=== PATIENT | female | born 1990 | race Caucasian/White ===

== ENCOUNTER → 2017-07-23 | Outpatient (CLI) | payer OTHER ==
[~2017-07-23] MED LIST: ALBU90OI INH; CEPH500 PO; CIPR500 PO; CODACE30 PO; CRUTCH4 USE; CYCL10 PO; DOXY100 PO; EPIN.3I IM; HYDACE5 PO; HYDHCL25 PO; HYDPAM50 PO; IBUP600 PO; IBUP800 PO; METR500 PO; MULVITMINE; NAPR500 PO; NITR100CA PO; PROC10 PO; PROM25 PO; Percocet 5-3251 EACH PO; Prednisone20 MG PO; Prilosec20 MG PO; RXCYCL10 PO; RXHYDACE PO; RXHYDMOR2 PO; SUCR1 PO; SULTRIDS PO; TRAM50 PO; Verotin-Gr Cap1 EACH; Verotin-Gr Cap1 EACH PO; Zofran8 MG PO
[2017-07-23 10:59] LABS: Specimen Source CERVIX
[2017-07-24 03:10] LABS: Source Cervix
[2017-07-24 10:47] LABS: Candida species (DNA Probe) Negative (NEGATIVE); G. vaginalis (DNA Probe) Negative (NEGATIVE); T. vaginalis (DNA Probe) Negative (NEGATIVE)
== END ==
LOC: LAB SHORT 10:46 → LAB 10:46
PROVIDERS: Obstetrics & Gynecology
DX: Z11.3 Encounter for screening for infections with a predominantly sexual mode of transmission (principal); N76.0 Acute vaginitis
CPT/HCPCS: 87480; 87491; 87510; 87591; 87660

== ENCOUNTER → 2017-09-08 | Outpatient (CLI) | payer OTHER ==
[~2017-09-08] MED LIST changes: -IBUP800 PO
[2017-09-08 12:14] LABS: Specimen Source URINE
[2017-09-09 09:39] LABS: Source Urine
== END | disposition home or self-care (01) ==
LOC: LAB 12:07 → LAB SHORT 12:07
PROVIDERS: Obstetrics & Gynecology
DX: Z11.3 Encounter for screening for infections with a predominantly sexual mode of transmission (principal)
CPT/HCPCS: 87491; 87591

== ENCOUNTER 2017-09-14 14:21 | Emergency (ER) | payer OTHER ==
[~2017-09-14] VITALS: Ht 177.8 cm; Wt 139.2 kg
[~2017-09-14 14:21] MED LIST changes: -PROM25 PO; -Verotin-Gr Cap1 EACH
[2017-09-14 15:17] LABS: BASOPHILS ABSOLUTE AUTO 0.06 K/mm3 (0.00-0.23); BASOPHILS PERCENT AUTO 0 % (0-2); EOSINOPHILS ABSOLUTE AUTO 0.13 K/mm3 (0.00-0.68); EOSINOPHILS PERCENT AUTO 1 % (0-6); Hematocrit 40.1 % (33.0-51.0); Hemoglobin 12.8 g/dL (11.5-16.0); IMMATURE GRAN ABSOLUTE AUTO 0.11 K/mm3 (0.00-0.10); IMMATURE GRAN PERCENT AUTO 1 % (0-1); LYMPHOCYTES ABSOLUTE AUTO 3.73 K/mm3 (0.84-5.20); LYMPHOCYTES PERCENT AUTO 24 % (21-46); MONOCYTES ABSOLUTE AUTO 1.04 K/mm3 (0.16-1.47); MONOCYTES PERCENT AUTO 7 % (4-13); Mean Corpuscular HGB 30.8 pg (26.0-34.0); Mean Corpuscular HGB Conc 31.9 g/dL (31.5-36.5); Mean Corpuscular Volume 96 fL (80-100); Mean Platelet Volume 10.1 fL (9.1-12.4); NEUTROPHILS ABSOLUTE AUTO 10.48 K/mm3 (1.96-9.15); NEUTROPHILS PERCENT AUTO 67 % (41-73); Platelet Count 430 K/mm3 (150-400); RDW Coefficient Variation 12.6 % (11.7-14.2); Red Blood Cell Count 4.16 M/mm3 (3.80-5.20); White Blood Cell Count 15.55 K/mm3 (4.00-11.30)
[2017-09-14 15:39] LABS: Alanine Aminotransfer (ALT/SGP 16 U/L (12-78); Albumin, Blood 2.7 g/dL (3.4-5.0); Albumin/Globulin Ratio 0.6 (0.8-1.8); Alk Phos 82 U/L (50-136); Anion Gap 9 mmol/L (6-16); Bilirubin, Total 0.2 mg/dL (0.1-1.0); Blood Urea Nitrogen 3 mg/dL (8-24); Bun/Creatinine Ratio 6.5 (12.0-20.0); CO2, Blood 20 mmol/L (21-32); Calcium, Blood 8.5 mg/dL (8.5-10.1); Chloride, Blood 109 mmol/L (98-108); Creatinine, Blood 0.46 mg/dL (0.40-1.00); Globulin, Blood 4.2 g/dL (2.2-4.0); Glomerular Filtration Rate >60 (60-); Glucose, Blood 82 mg/dL (70-99); Potassium, Blood 3.6 mmol/L (3.5-5.5); Sodium, Blood 138 mmol/L (136-145); Total Protein, Blood 6.9 g/dL (6.4-8.2)
[2017-09-14] MEDS ORDERED: Verotin-Gr Cap1 EACH (16:42)
[2017-09-14 16:58] LABS: Source, Urine Clean Catch
[2017-09-14 17:00] LABS: Bilirubin, Urine Neg (Neg); Blood, Urine Neg (Neg); Glucose Qualitative, Urine Neg (Neg); Ketones, Urine 2+ (Neg); Leukocyte Esterase, Urine 1+ (Neg); Nitrite, Urine Neg (Neg); Protein, Urine Neg (Neg); Urobilinogen, Urine NORM (Normal)
[2017-09-14 17:39] LABS: Appearance, Urine Clear (Clear); Color, Urine Yellow (P-Yellow)
[2017-09-14 17:43] LABS: Bacteria Mod /hpf; Mucus Light (0-Heavy); Red Blood Cells, Urine 0-2 /hpf (0-2); Squamous Epithelial Cells Few /hpf (Few)
[2017-09-14] MEDS ORDERED: PROM25 PO (18:27)
[2017-09-14] MEDS ORDERED: CEPH500 PO (18:27)
[2017-09-14 22:28] LABS: Aspartate Aminotrans (AST/SGOT 16 U/L (12-37)
== END 2017-09-14 18:59 | disposition home or self-care (01) ==
LOC: ER 14:21
PROVIDERS: Emergency Medicine
DX: O23.42 Unspecified infection of urinary tract in pregnancy, second trimester (principal); Z79.899 Other long term (current) drug therapy; Z3A.14 14 weeks gestation of pregnancy
CPT/HCPCS: 36415; 80053; 81001; 81025; 83690; 85025; 87086; 96360; 99283; J7030

== ENCOUNTER → 2017-11-16 | Outpatient (CLI) | payer OTHER ==
[~2017-11-16] MED LIST changes: +PROM25 PO; +Verotin-Gr Cap1 EACH
[2017-11-16 17:54] LABS: Hematocrit 36.5 % (33.0-51.0); Hemoglobin 11.8 g/dL (11.5-16.0)
== END | disposition home or self-care (01) ==
LOC: LAB SHORT 05:10 → LAB 15:10
PROVIDERS: Obstetrics & Gynecology
DX: Z33.1 Pregnant state, incidental (principal)
CPT/HCPCS: 82950; 85014; 85018

== ENCOUNTER → 2018-02-15 | Outpatient (CLI) | payer OTHER | END | disposition home or self-care (01) | LOC: LAB SHORT 17:34 → LAB 17:34 | DX: Z34.83 Encounter for supervision of other normal pregnancy, third trimester (principal) | CPT/HCPCS: 87081; 87653 ==

== ENCOUNTER 2018-06-01 13:56 | Emergency (ER) | payer OTHER ==
[~2018-06-01] VITALS: Ht 180.3 cm; Wt 136.1 kg
[~2018-06-01 13:56] MED LIST changes: +IBUP800 PO
[2018-06-01] MEDS ORDERED: Norco 5-325 Ta1 EACH PO (16:50)
[2018-06-01] MEDS ORDERED: LIDO700A20 TOP (16:50)
== END 2018-06-01 17:06 | disposition home or self-care (01) ==
LOC: ER 13:56
DX: M25.551 Pain in right hip (principal); M54.5 Low back pain; W18.30XA Fall on same level, unspecified, initial encounter; G43.909 Migraine, unspecified, not intractable, without status migrainosus
CPT/HCPCS: 72100; 73502; 96372; 99283-25; J1885

== ENCOUNTER 2018-08-17 21:46 | Emergency (ER) | payer OTHER ==
[~2018-08-17] VITALS: Ht 177.8 cm; Wt 136.1 kg
[~2018-08-17 21:46] MED LIST changes: +LIDO700A20 TOP; +Norco 5-325 Ta1 EACH PO
[2018-08-17] MEDS ORDERED: CYCL10 PO (22:21)
[2018-08-17] MEDS ORDERED: Naprosyn500 MG PO (22:21)
== END 2018-08-17 22:40 | disposition home or self-care (01) ==
LOC: ER 21:46
DX: M43.6 Torticollis (principal); R59.1 Generalized enlarged lymph nodes
CPT/HCPCS: 99282

== ENCOUNTER → 2019-12-14 | Outpatient (CLI) | payer OTHER ==
[~2019-12-14] MED LIST changes: +Naprosyn500 MG PO
== END | disposition home or self-care (01) ==
LOC: LAB SHORT 07:46 → PLD 07:46
DX: L30.8 Other specified dermatitis (principal)
CPT/HCPCS: 88305; 88312

== ENCOUNTER 2020-11-08 13:52 | Emergency (ER) | payer OTHER ==
[~2020-11-08] VITALS: Ht 170.2 cm; Wt 137.0 kg
[2020-11-08 14:45] LABS: BASOPHILS ABSOLUTE AUTO 0.03 K/mm3 (0.00-0.23); BASOPHILS PERCENT AUTO 0 % (0-2); EOSINOPHILS ABSOLUTE AUTO 0.01 K/mm3 (0.00-0.68); EOSINOPHILS PERCENT AUTO 0 % (0-6); Hematocrit 47.3 % (33.0-51.0); Hemoglobin 15.3 g/dL (11.5-16.0); IMMATURE GRAN ABSOLUTE AUTO 0.04 K/mm3 (0.00-0.10); IMMATURE GRAN PERCENT AUTO 0 % (0-1); LYMPHOCYTES ABSOLUTE AUTO 1.97 K/mm3 (0.84-5.20); LYMPHOCYTES PERCENT AUTO 20 % (21-46); MONOCYTES ABSOLUTE AUTO 0.59 K/mm3 (0.16-1.47); MONOCYTES PERCENT AUTO 6 % (4-13); Mean Corpuscular HGB 29.7 pg (26.0-34.0); Mean Corpuscular HGB Conc 32.3 g/dL (31.5-36.5); Mean Corpuscular Volume 92 fL (80-100); Mean Platelet Volume 9.3 fL (9.1-12.4); NEUTROPHILS ABSOLUTE AUTO 7.47 K/mm3 (1.96-9.15); NEUTROPHILS PERCENT AUTO 74 % (41-73); Platelet Count 386 K/mm3 (150-400); RDW Coefficient Variation 12.3 % (11.7-14.2); RDW Standard Deviation 41.6 fL (35.1-46.3); Red Blood Cell Count 5.16 M/mm3 (3.80-5.20); White Blood Cell Count 10.11 K/mm3 (4.00-11.30)
[2020-11-08 14:52] LABS: Anion Gap 9 mmol/L (6-16); Blood Urea Nitrogen 9 mg/dL (8-24); Bun/Creatinine Ratio 13.6 (12.0-20.0); CO2, Blood 20 mmol/L (21-32); Calcium, Blood 9.1 mg/dL (8.5-10.1); Chloride, Blood 112 mmol/L (98-108); Creatinine, Blood 0.66 mg/dL (0.40-1.00); Glomerular Filtration Rate >60 (60-); Glucose, Blood 111 mg/dL (70-99); Potassium, Blood 3.5 mmol/L (3.5-5.5); Sodium, Blood 141 mmol/L (136-145)
[2020-11-08] MEDS ORDERED: ONDA4ODT MM (15:02)
== END 2020-11-08 15:19 | disposition home or self-care (01) ==
LOC: ER 13:52
PROVIDERS: Physician Assistant
DX: U07.1 COVID-19 (principal); Z79.899 Other long term (current) drug therapy
CPT/HCPCS: 36415; 80048; 85025; 99283

== ENCOUNTER → 2022-11-19 | Outpatient (CLI) | payer OTHER ==
[~2022-11-19] MED LIST changes: +ONDA4 PO; +ONDA4ODT MM
[2022-11-20 16:10] LABS: HPV 16 Negative (Negative); HPV 18 Negative (Negative); HPV OTHER HR TYPES Negative (Negative)
== END | disposition home or self-care (01) ==
LOC: LAB SHORT 11:38 → LAB 11:38
PROVIDERS: Obstetrics & Gynecology
DX: Z01.419 Encounter for gynecological examination (general) (routine) without abnormal findings (principal)
CPT/HCPCS: 87624; G0145

== ENCOUNTER 2025-02-27 13:45 | Emergency (ER) | payer OTHER ==
[~2025-02-27] VITALS: Ht 175.3 cm; Wt 90.7 kg
[~2025-02-27 13:45] MED LIST changes: +DOCU100 PO; +Imitrex50 MG PO; +METO5A PO; +TOPI25 PO
[2025-02-27 14:47] LABS: BASOPHILS ABSOLUTE AUTO 0.06 K/mm3 (0.00-0.23); BASOPHILS PERCENT AUTO 1 % (0-2); EOSINOPHILS ABSOLUTE AUTO 0.12 K/mm3 (0.00-0.68); EOSINOPHILS PERCENT AUTO 1 % (0-6); Hematocrit 38.6 % (33.0-51.0); Hemoglobin 12.7 g/dL (11.5-16.0); IMMATURE GRAN ABSOLUTE AUTO 0.04 K/mm3 (0.00-0.10); IMMATURE GRAN PERCENT AUTO 0 % (0-1); LYMPHOCYTES ABSOLUTE AUTO 2.73 K/mm3 (0.84-5.20); LYMPHOCYTES PERCENT AUTO 24 % (21-46); MONOCYTES ABSOLUTE AUTO 0.86 K/mm3 (0.16-1.47); MONOCYTES PERCENT AUTO 8 % (4-13); Mean Corpuscular HGB Conc 32.9 g/dL (31.5-36.5); Mean Corpuscular Volume 94 fL (80-100); NEUTROPHILS ABSOLUTE AUTO 7.44 K/mm3 (1.96-9.15); NEUTROPHILS PERCENT AUTO 66 % (41-73); NRBC ABSOLUTE 0.00 K/mm3 (0.00-0.02); NRBC Auto 0.0 /100 WBC (0.0-0.2); Platelet Count 389 K/mm3 (150-400); RDW Coefficient Variation 13.2 % (11.7-14.2); RDW Standard Deviation 45.2 fL (35.1-46.3)
[2025-02-27 15:15] LABS: Alanine Aminotransfer (ALT/SGP 22.0 U/L (12-78); Albumin, Blood 3.5 g/dL (3.4-5.0); Albumin/Globulin Ratio 1.0 (0.8-1.8); Anion Gap 6.0 mmol/L (3-11); Aspartate Aminotrans (AST/SGOT 13.0 U/L (12-37); Bilirubin, Total 0.6 mg/dL (0.1-1.0); Blood Urea Nitrogen 11.0 mg/dL (8-24); CO2, Blood 28.0 mmol/L (21-32); Calcium, Blood 8.6 mg/dL (8.5-10.1); Chloride, Blood 107.0 mmol/L (98-108); Creatinine, Blood 0.77 mg/dL (0.40-1.00); Globulin, Blood 3.4 g/dL (2.2-4.0); Glucose, Blood 93.0 mg/dL (70-99); Magnesium, Blood 2.1 mg/dL (1.6-2.4); Potassium, Blood 3.4 mmol/L (3.5-5.5); Sodium, Blood 138.0 mmol/L (136-145); Total Protein, Blood 6.9 g/dL (6.4-8.2)
[2025-02-27 17:46] VITALS: BP 119/58
== END 2025-02-27 17:46 | disposition home or self-care (01) ==
LOC: ER 13:45
PROVIDERS: Emergency Medicine
DX: E87.6 Hypokalemia (principal); R07.89 Other chest pain
CPT/HCPCS: 71046; 80053; 83735; 83880; 84484; 85025; 93005; 93010; 99285-25; A9270